=== PATIENT | male | born 1960 | race Caucasian/White ===

== ENCOUNTER 2017-03-11 18:59 | Emergency (ER) | payer OTHER ==
[~2017-03-11] VITALS: Ht 172.7 cm; Wt 73.1 kg
[~2017-03-11 18:59] MED LIST: ADVAIR 250/501 DISK IH; COMBIVENT RESPIM4 GM IH; DIAZEPAM5 MG PO; GABAPENTIN300 MG PO; PERPHENAZINE8 MG PO; SEROQUEL; SEROQUEL XR50 MG PO; SEROQUEL100 MG PO; SEROQUEL12.5 MG PO; SEROQUEL200 MG PO; SEROQUEL50 MG PO; TRILAFON4 MG PO; ULTRAM50 MG PO; VALIUM5 MG PO; VYVANSE50 MG PO
[2017-03-11 21:33] VITALS: BP 1154/65
== END 2017-03-11 21:52 | disposition home or self-care (01) ==
LOC: EME 18:59
DX: T40.1X1A Poisoning by heroin, accidental (unintentional), initial encounter (principal); F11.10 Opioid abuse, uncomplicated; J44.9 Chronic obstructive pulmonary disease, unspecified; F17.200 Nicotine dependence, unspecified, uncomplicated
CPT/HCPCS: 99281; 99284; J2310